=== PATIENT | female | born 1930 | race Caucasian/White ===

== ENCOUNTER 2018-01-02 10:38 | Outpatient (CLI) | payer MEDICARE, BC ==
--- NOTE | 2018-01-02 15:33 | RAD ---
DOUBLE CONTRAST BARIUM SWALLOW: CLINICAL HISTORY: Dysphagia. FINDINGS: The patient had difficulty tolerating oral ingestion of effervescent crystals as well as liquid bariu m which does limit evaluation. The patient has repeated coughing throughout the exam as well as epis odes of gagging. Real-time fluoroscopy was preformed at the time of ingested barium and there is no evidence to indicate aspirated barium during the exam. Tertiary esophageal contractions are present. There is free passage of liquid barium through the esophagus and into the stomach. A 12.5 mm bariu m tablet was administered d did traverse the esophagus into the stomach without abnormal holdup. No gastroesophageal reflux or obvious hiatal hernia demonstrated during the exam. IMPRESSION: Limited evaluation as the patient has had marked difficulty with ingestion of the effervescent tai ls as well as of the liquid barium. Within the limitations of the exam, there is no constricting les ion or persistent mass effect upon the esophagus. Tertiary esophageal contractions are seen. There is free passage of 12.5 mm barium tablet into the stomach. POS: [facility]
== END 2018-01-02 10:39 | disposition home or self-care (01) ==
LOC: RAD 10:38
PROVIDERS: ATTEND Internal Medicine
DX: R13.10 Dysphagia, unspecified (principal)
CPT/HCPCS: 74220